=== PATIENT | female | born 2000 | race Caucasian/White ===

== ENCOUNTER 2021-06-06 13:43 | Observation (INO) ==
[2021-06-06] MEDS ORDERED: MORPHINE SULFATE INJ 2 MG INJ IVP PRN (14:53)
[2021-06-06] MEDS ORDERED: D5 1/2 NS 1,000 ML 1,000 ML IV ONE (15:13)
[2021-06-06] MEDS: D5 1/2 NS 1,000 ML 1,000 ML IV SCH ×3 (15:47→23:37)
--- NOTE | 2021-06-06 16:59 | US ---
HISTORYABD PAINSTUDYGALL BLADDERCOMPARISONNo relevant prior studies available.TECHNIQUEGrayscale and color Doppler transabdominal images were reviewed.FINDINGSLiver: Normal echogenicity. No focal concerning parenchymal lesion identified. Right hepatic lobe measures 15.2 x 12.2 cm.Portal vein is patent with hepatopetal flow.Hepatic arteries patent.Hepatic vein is patent with hepatofugal flow.Gallbladder/Biliary ducts: No echogenic stones or sludge in the gallbladder.Gallbladder wall: 0.35 cmCommon bile duct: 0.17 cmRight kidney: measures: 11.2 x 3.4 x 5.6cm. Normal appearing parenchyma with no hydronephrosis or ureteral calculus. Resistive index 0.64. Cortex measures 1.1 cm.Pancreas: Visualized portion of the pancreatic head and body are unremarkable in appearance.IVC: Unremarkable.IMPRESSIONUnremarkable exam.Electronically signed by: Carlos Winston (Jun 06, 2021 16:57:35)
[2021-06-06 17:13] VITALS: BMI 19.0
[2021-06-06] MEDS ORDERED: MOTRIN TAB 800 MG PO PRN (17:29)
[2021-06-06] MEDS ORDERED: ZOSYN VIAL 3.375 GRAMS 3.375 G in NS 100 ML IV + SPIKE MINIBAG* 100 ML IV SCH (22:00)
[2021-06-07 06:46] LABS: BASOPHILS % (AUTO) 0.4 % (0.2-1.0); EOSINOPHILS # (AUTO) 0.1 x10^3/uL (0.0-0.2); EOSINOPHILS % (AUTO) 3.2 % (0.9-2.9); HEMATOCRIT 36.4 % (36.0-47.0); HEMOGLOBIN 12.6 g/dL (12.0-16.0); LYMPHOCYTES # (AUTO) 1.5 X10^3/uL (1.3-2.9); LYMPHOCYTES % (AUTO) 32.6 % (21.0-51.0); MEAN CORPUSCULAR HEMOGLOBIN 29.6 pg (27.0-34.0); MEAN CORPUSCULAR HGB CONC 34.5 g/dL (33.0-35.0); MEAN CORPUSCULAR VOLUME 85.7 fL (80.0-100.0); MEAN PLATELET VOLUME 9.9 fL (7.4-11.0); MONOCYTES # (AUTO) 0.3 x10^3/uL (0.3-0.8); MONOCYTES % (AUTO) 7.3 % (0.0-13.0); NEUTROPHILS # (AUTO) 2.6 x10^3/uL (2.2-4.8); NEUTROPHILS % (AUTO) 56.5 % (42.0-75.0); RED BLOOD COUNT 4.25 X10^6/uL (3.5-5.4); RED CELL DISTRIBUTION WIDTH 13.1 % (11.6-16.5); WHITE BLOOD COUNT 4.6 X10^3/uL (3.6-10.0)
[2021-06-07 07:08] LABS: ALANINE AMINOTRANSFERASE 14 Units/L (12-78); ALBUMIN 3.5 g/dL (3.4-5.0); ALKALINE PHOSPHATASE 50 Units/L (46-116); ASPARTATE AMINO TRANSFERASE 13 Units/L (15-37); BLOOD UREA NITROGEN 6 mg/dL (7-18); CALCIUM 8.4 mg/dL (8.5-10.1); CARBON DIOXIDE 23.5 mmol/L (21-32); CHLORIDE 108 mmol/L (98-107); CREATININE 0.56 mg/dL (0.55-1.02); SODIUM 140 mmol/L (136-145); TOTAL PROTEIN 6.4 g/dL (6.4-8.2); eGFR NON BLACK RACES > 60 (>60)
[2021-06-07] MEDS ORDERED: LEVAQUIN PREMIX IV 500 MG 500 MG/100 ML BAG IV SCH (09:00)
[2021-06-07 12:09] VITALS: BP 103/58
[2021-06-07] MEDS: D5 1/2 NS 1,000 ML 1,000 ML IV SCH (12:13)
== END 2021-06-07 14:00 | disposition home or self-care (01) ==
LOC: MED/SURG
PROVIDERS: ADMIT Surgery; ATTEND Surgery
DX: Z86.16 Personal history of COVID-19; R11.2 Nausea with vomiting, unspecified; R10.84 Generalized abdominal pain; R10.31 Right lower quadrant pain; I88.0 Nonspecific mesenteric lymphadenitis; R53.1 Weakness